=== PATIENT | female | born 1955 | race Caucasian/White ===

== ENCOUNTER 2016-06-13 21:50 | Emergency (ER) | payer OTHER ==
[2016-06-13 22:04] VITALS: BP 109/69; PULSE 68; TEMP 97.3; BMI 24.4
--- NOTE | 2016-06-13 23:12 | PDOC ---
History of Present Illness <Heather Millan - Last Filed: 06/14/16 04:11> - General History Source: Patient Exam Limitations: No Limitations - History of Present Illness Initial Comments: 06/13/16 23:35 The patient is a 61 year old female with no PMHx who presents to the ED with intermittent LLQ pain since yesterday morning. She states the pain has worsened with time. She reports an episode of diarrhea yesterday. She also reports lifting heavy objects at work. She denies fever, chills, nausea, vomiting. She denies chest pain, SOB, dizziness, headache. <Mey Mart Natali - Last Filed: 06/14/16 04:19> - General Chief Complaint: Pain Stated Complaint: ABD PAIN Time Seen by Provider: 06/13/16 22:58 Past History - Psycho/Social/Smoking Cessation Hx Anxiety: No Suicidal Ideation: No Smoking Status: No Smoking History: Never smoked Years of Tobacco Use: 0 Have you smoked in the past 12 months: No Number of Cigarettes Smoked Daily: 0 If you are a former smoker, when did you quit?: 1984 Information on smoking cessation initiated: No Hx Alcohol Use: No Drug/Substance Use Hx: No <Heather Millan - Last Filed: 06/14/16 04:11> <Mey Mart - Last Filed: 06/14/16 04:19> - Past Medical History Allergies/Adverse Reactions: Allergies Allergy/AdvReac Type Severity Reaction Status Date / Time No Known Allergies Allergy Verified 06/13/16 22:01 Home Medications: Ambulatory Orders Ibuprofen [Motrin -] 600 mg PO TID #30 tablet 06/14/16 Sulfamethoxazole/Trimethoprim [Bactrim Ds -] 1 tab PO BID #14 tablet 06/14/16 Review of Systems - Review of Systems Comments:: 06/13/16 23:35 GENERAL/CONSTITUTIONAL: No fever or chills. No weakness. HEAD, EYES, EARS, NOSE AND THROAT: No change in vision. No ear pain or discharge. No sore throat. CARDIOVASCULAR: No chest pain or shortness of breath. RESPIRATORY: No cough, wheezing, or hemoptysis. GASTROINTESTINAL: + LLQ pain, diarrhea. No nausea, vomiting, or constipation. GENITOURINARY: No dysuria, frequency, or change in urination. MUSCULOSKELETAL: No joint or muscle swelling or pain. No neck or back pain. SKIN: No rash NEUROLOGIC: No headache, vertigo, loss of consciousness, or change in strength/ sensation. ENDOCRINE: No increased thirst. No abnormal weight change. HEMATOLOGIC/LYMPHATIC: No anemia, easy bleeding, or history of blood clots. ALLERGIC/IMMUNOLOGIC: No hives or skin allergy. <Mey Mart - Last Filed: 06/14/16 04:19> *Physical Exam - Vital Signs Last Vital Signs Temp Pulse Resp BP Pulse Ox 97.3 F L 68 14 109/69 97 06/13/16 22:01 06/13/16 22:01 06/13/16 22:01 06/13/16 22:01 06/13/16 22:01 <Heather Millan - Last Filed: 06/14/16 04:11> - Vital Signs Last Vital Signs Temp Pulse Resp BP Pulse Ox 97.3 F L 68 14 109/69 97 06/13/16 22:01 06/13/16 22:01 06/13/16 22:01 06/13/16 22:01 06/13/16 22:01 - Physical Exam Comments: 06/13/16 23:35 GENERAL: Awake, alert, and fully oriented, in no acute distress HEAD: No signs of trauma EYES: PERRLA, EOMI, sclera anicteric, conjunctiva clear ENT: Auricles normal inspection, hearing grossly normal, nares patent, oropharynx clear without exudates. Moist mucosa NECK: Normal ROM, supple, no lymphadenopathy, JVD, or masses LUNGS: Breath sounds equal, clear to auscultation bilaterally. No wheezes, and no crackles HEART: Regular rate and rhythm, normal S1 and S2, no murmurs, rubs or gallops ABDOMEN: LLQ tenderness. Soft, normoactive bowel sounds. No guarding, no rebound. No masses EXTREMITIES: Normal range of motion, no edema. No clubbing or cyanosis. No cords, erythema, or tenderness NEUROLOGICAL: Cranial nerves II through XII grossly intact. Normal speech, normal gait SKIN: Warm, Dry, normal turgor, no rashes or lesions noted. <Mey Mart - Last Filed: 06/14/16 04:19> ED Treatment Course - LABORATORY CBC & Chemistry Diagram: 06/13/16 23:30 06/13/16 23:30 <Heather Millan - Last Filed: 06/14/16 04:11> - LABORATORY CBC & Chemistry Diagram: 06/13/16 23:30 06/13/16 23:30 - RADIOLOGY Radiograph Interpretation: 06/14/16 04:[address] Reported by Dr. Desiree Lugo Impression: Epiploic appendagitis along proximal sigmoid colon. No bowel obstruction, colitis, free fluid or free air. Normal appendix. Unremarkable pancreas, kidneys and gallbladder. Small umbilical hernia containing fat. Hysterectomy. <Mey Mart - Last Filed: 06/14/16 04:19> *DC/Admit/Observation/Transfer - Discharge Dispostion Admit: No <Heather Millan - Last Filed: 06/14/16 04:11> - Attestations Scribe Attestion: 06/13/16 23:35 Documentation prepared by Mey Mart, acting as medical office technician for Heather Millan MD. <Mey Mart - Last Filed: 06/14/16 04:19> Diagnosis at time of Disposition: Epiploic appendagitis, UTI (urinary tract infection) - Discharge Dispostion Disposition: HOME Condition at time of disposition: Stable - Prescriptions Prescriptions: Sulfamethoxazole/Trimethoprim [Bactrim Ds -] 1 tab PO BID #14 tablet Ibuprofen [Motrin -] 600 mg PO TID #30 tablet - Referrals Referrals: Audrey Desai [Primary Care Provider] - - Patient Instructions Printed Discharge Instructions: DI for Urinary Tract Infection (UTI) - Post Discharge Activity Work/School Note: Back to Work
[2016-06-13] MEDS ORDERED: ONDANSETRON 4 MG/2 ML VIAL IVPB ONE (23:13)
[2016-06-13] MEDS ORDERED: SODIUM CHLORIDE 0.9% 500 ML INFUS.BAG IV ONE (23:13)
[2016-06-13] MEDS ORDERED: morphine CARPU-JECT 2 MG/1 ML DISP.SYRIN IVPUSH ONE (23:13)
[2016-06-13] MEDS ORDERED: ONDANSETRON 4 MG/2 ML VIAL ONE (23:36)
[2016-06-13] MEDS ORDERED: morphine CARPU-JECT 2 MG/1 ML DISP.SYRIN ONE (23:36)
[2016-06-13 23:45] LABS: EOSINOPHIL 1.2 % (0-4.5); MCH 30.1 pg (25.7-33.7); MCHC 33.4 g/dl (32.0-36.0); MEAN CELL VOLUME 90.2 fl (80-96); MEAN PLT VOLUME 8.9 fl (7.5-11.1); NEUTROPHILS 56.2 % (42.8-82.8); PLATELET COUNT 243 K/MM3 (134-434); RDW 13.3 % (11.6-15.6); WHITE BLOOD COUNT 7.6 K/mm3 (4.0-10.0)
[2016-06-13 23:52] LABS: URINE APPEARANCE CLEAR; URINE BILIRUBIN NEGATIVE (NEGATIVE); URINE BLOOD NEGATIVE (NEGATIVE); URINE COLOR STRAW; URINE GLUCOSE (UA) NEGATIVE (NEGATIVE); URINE KETONE NEGATIVE (NEGATIVE); URINE LEUK ESTERASE 3+ (NEGATIVE); URINE NITRITE NEGATIVE (NEGATIVE); URINE PROTEIN NEGATIVE (NEGATIVE); URINE UROBILINOGEN NEGATIVE E.U./dl (0.2-1.0)
[2016-06-13 23:53] LABS: URINE RBC 3 /hpf (0-3); URINE WBC 25 /hpf (3-5)
[2016-06-14 00:11] LABS: ALBUMIN 3.3 g/dl (3.4-5.0); ALK PHOS 68 U/L (45-117); ANION GAP 9 (8-16); BILIRUBIN,TOTAL 0.4 mg/dL (0.2-1.0); CALCIUM 8.3 mg/dL (8.5-10.1); CO2 27 mmol/L (21-32); CREATININE 0.8 mg/dL (0.55-1.02); GLUCOSE,RANDOM 99 mg/dL (74-106); SGOT/AST 17 U/L (15-37); SGPT/ALT 17 U/L (12-78); TOT PROT 6.3 g/dl (6.4-8.2)
[2016-06-14 00:47] LABS: INR 1.09 (0.82-1.09)
[2016-06-14 02:35] LABS: AMYLASE 72 U/L (25-115)
[2016-06-14] MEDS ORDERED: PHENAZOPYRIDINE HCL 100 MG TABLET (FP) PO ONE (02:43)
[2016-06-14] MEDS ORDERED: KETOROLAC TROMETHAMINE 30 MG/1 ML VIAL IVPUSH ONE (02:44)
[2016-06-14] MEDS ORDERED: SULFAMETHOXAZOLE/TRIMETHOPRIM 800MG/160MG D.S. TABLET PO ONE (02:44)
[2016-06-14] MEDS ORDERED: PHENAZOPYRIDINE HCL 100 MG TABLET (FP) ONE (03:44)
[2016-06-14] MEDS ORDERED: SULFAMETHOXAZOLE/TRIMETHOPRIM 800MG/160MG D.S. TABLET ONE (03:44)
[2016-06-14] MEDS ORDERED: KETOROLAC TROMETHAMINE 30 MG/1 ML VIAL ONE (03:45)
== END 2016-06-14 04:20 | disposition home or self-care (01) ==
LOC: JER 21:50
PROC: 3E033NZ Introduction of Analgesics, Hypnotics, Sedatives into Peripheral Vein, Percutaneous Approach (ICD-10-PCS; principal; 2016-06-13)
PROC: 3E0333Z Introduction of Anti-inflammatory into Peripheral Vein, Percutaneous Approach (ICD-10-PCS; 2016-06-13)
PROC: 3E033GC Introduction of Other Therapeutic Substance into Peripheral Vein, Percutaneous Approach (ICD-10-PCS; 2016-06-13)
DX: K63.89 Other specified diseases of intestine (principal); N39.0 Urinary tract infection, site not specified
CPT/HCPCS: 36415; 74176-TC; 80053; 81003; 81015; 82150; 83690; 85025; 85610; 85730; 96374; 96375; 99281-25; 99283-25